=== PATIENT | male | born 1995 | race Caucasian/White ===

== ENCOUNTER 2022-04-21 08:17 | Emergency (ER) | payer OTHER ==
[2022-04-21] MEDS ORDERED: Bacitracin/Neomycin/Polymyxin B Oint 28.4 GM Tube TOP STA (09:03)
[2022-04-21] MEDS ORDERED: Diphtheria,Pertussis(Acell),Tetanus Vaccine 0.5 ML Syringe IM ONE (09:08)
== END 2022-04-21 09:33 | disposition home or self-care (01) ==
LOC: MW.ED 08:17
DX: T23.201A Burn of second degree of right hand, unspecified site, initial encounter (principal); Z23 Encounter for immunization; X08.8XXA Exposure to other specified smoke, fire and flames, initial encounter
CPT/HCPCS: 90471; 90715; 99283; A9270; 16020

== ENCOUNTER 2022-05-23 20:18 | Emergency (ER) | payer OTHER ==
[2022-05-23 21:15] LABS: ACETAMINOPHEN <2.0 ug/mL; BLOOD UREA NITROGEN,BUN 9 mg/dL (7.0-18.0); CARBON DIOXIDE,CO2 29.1 mmol/L (21.0-32.0); CHLORIDE,CL 103 mmol/L (98-107); GLUCOSE RANDOM 114 mg/dL (74-106); POTASSIUM,K 4.3 mmol/L (3.5-5.1); SODIUM,NA 141 mmol/L (136-148)
[2022-05-23 21:18] LABS: ESTIMATED GFR 107 mL/min (>60)
[2022-05-23] MEDS ORDERED: chlordiazePOXIDE 25 MG Cap PO ONE (22:13)
== END 2022-05-23 22:30 ==
LOC: MW.ED 20:18
DX: R45.851 Suicidal ideations (principal); Z20.822 Contact with and (suspected) exposure to COVID-19
CPT/HCPCS: 36415; 80053; 80143; 80179; 80305; 80307; 81003; 83735; 84439; 84443; 84481; 85025; 87635; 99285; A9270; U0002

== ENCOUNTER 2023-08-21 20:10 | Emergency (ER) | payer BC, OTHER ==
[2023-08-21] MEDS ORDERED: Ketorolac 30 MG/ML SDV IM ONE (20:37)
[2023-08-21 21:34] LABS: CORONAVIRUS COVID-19 NAA NEGATIVE (NEGATIVE); INFLUENZA A NAA NEGATIVE (NEGATIVE); INFLUENZA B NAA NEGATIVE (NEGATIVE)
[2023-08-21] MEDS ORDERED: Amoxicillin/Clavulanate K 875-125 MG Tab PO ONE (21:38)
== END 2023-08-21 21:49 | disposition home or self-care (01) ==
LOC: MW.ED 20:10
DX: H65.92 Unspecified nonsuppurative otitis media, left ear (principal)
CPT/HCPCS: 0240U; 87651; 96372; 99283; A9270; J1885

== ENCOUNTER 2024-03-04 20:40 | Emergency (ER) | payer BC ==
[2024-03-04] MEDS: Lidocaine 1% 5 ML VIAL INJECT ONE (20:59)
[2024-03-04] MEDS: Cephalexin 500 MG Cap PO ONE (21:26)
== END 2024-03-04 21:40 | disposition home or self-care (01) ==
LOC: MW.ED 20:40
DX: S61.211A Laceration without foreign body of left index finger without damage to nail, initial encounter (principal); Z75.8 Other problems related to medical facilities and other health care; W26.0XXA Contact with knife, initial encounter
CPT/HCPCS: 12002; 99282; A9270; 99283; J3490

== ENCOUNTER 2025-06-18 22:46 | Emergency (ER) | payer BC ==
[2025-06-18] MEDS: Bacitracin Oint 1 GM U/D Packet ONE (23:19)
== END 2025-06-18 23:27 | disposition home or self-care (01) ==
LOC: MW.ED 22:46
DX: S61.215A Laceration without foreign body of left ring finger without damage to nail, initial encounter (principal); W26.8XXA Contact with other sharp object(s), not elsewhere classified, initial encounter
CPT/HCPCS: 12001; 99282; J2003; 99283